=== PATIENT | female | born 1930 | race Caucasian/White ===

== ENCOUNTER 2016-11-15 17:52 | Emergency (ER) | payer MEDICARE, BC ==
[2016-11-15 18:51] VITALS: BP 95/66
--- NOTE | 2016-11-15 19:56 | UC ---
Complaint Female HPI - HPI Summary HPI Summary: Patient has had increased urinary frequency, some dysruia, denies fever - History Of Current Complaint Chief Complaint: UCGU Stated Complaint: URINARY Time Seen by Provider: 11/15/16 19:38 Hx Obtained From: Patient ?: No Onset/Duration: Sudden Onset, Lasting Days Timing: Constant Severity Initially: Moderate Severity Currently: Moderate Character: Burning Aggravating Factor(s): Urination Associated Signs And Symptoms: Positive: Negative - Allergies/Home Medications Allergies/Adverse Reactions: Allergies Allergy/AdvReac Type Severity Reaction Status Date / Time No Known Allergies Allergy Verified 11/15/16 18:44 Home Medications: Home Medications Albuterol HFA INHALER* [Ventolin HFA Inhaler*] 2 puff INH Q4H PRN 11/15/16 [ History Confirmed 11/15/16] Amitriptyline TAB* [Elavil TAB*] 10 mg PO BEDTIME 11/15/16 [History Confirmed ] Atenolol & Chlorthalidone [Atenolol/Chlorthalidone 100-25 mg-] 1 tab PO DAILY [History Confirmed 11/15/16] Calcium Polycarbophil TAB* [Fibercon TAB*] 625 mg PO DAILY 11/15/16 [History Confirmed 11/15/16] Cholecalciferol [Vitamin D-3] 400 unit PO DAILY 11/15/16 [History Confirmed ] Furosemide TAB* [Lasix TAB*] 20 mg PO DAILY 11/15/16 [History Confirmed 11/15/16 ] Glimepiride [Amaryl] 1 mg PO DAILY 11/15/16 [History Confirmed 11/15/16] Metoprolol Succinate XL TAB* [Toprol XL TAB*] 75 mg PO DAILY 11/15/16 [History Confirmed 11/15/16] Pantoprazole TAB (NF) [Protonix TAB (NF)] 40 mg PO DAILY 11/15/16 [History Confirmed 11/15/16] Potassium Chlor TAB* [Klor Con ER TAB 10 MEQ*] 10 meq PO TID 11/15/16 [History Confirmed 11/15/16] Pravastatin (NF) [Pravachol (NF)] 10 mg PO 1700 11/15/16 [History Confirmed ] Sitagliptin (NF) [Januvia (NF)] 50 mg PO DAILY 11/15/16 [History Confirmed 11/15] Vitamin B Complex TAB* [Complex B-100*] 1 tab PO DAILY 11/15/16 [History Confirmed 11/15/16] Warfarin TAB(*) [Coumadin TAB(*)] 2 mg PO DAILY 11/15/16 [History Confirmed ] PMH/Surg Hx/FS Hx/Imm Hx Previously Healthy: Yes Endocrine History Of: Reports: Diabetes Cardiovascular History Of: Reports: Hypertension - Surgical History Surgical History: Yes Surgery Procedure, Year, and Place: lumpectomy - Family History Known Family History: Negative: Cardiac Disease, Hypertension - Social History Alcohol Use: None Substance Use Type: None Smoking Status (MU): Former Smoker When Did the Patient Quit Smoking/Using Tobacco: 30 years ago Review of Systems Constitutional: Negative Skin: Negative Eyes: Negative ENT: Negative Respiratory: Negative Cardiovascular: Negative Gastrointestinal: Negative Genitourinary: Dysuria, Frequency Motor: Negative Neurovascular: Negative Musculoskeletal: Negative Neurological: Negative Psychological: Negative All Other Systems Reviewed And Are Negative: Yes Physical Exam Triage Information Reviewed: Yes Appearance: Well-Nourished, Ill-Appearing, Pain Distress Vital Signs: Initial Vital Signs Temp 97.6 F 11/15/16 18:45 Pulse 88 11/15/16 18:45 Resp 20 11/15/16 18:45 BP 95/66 11/15/16 18:45 Pulse Ox 100 11/15/16 18:45 Vital Signs Reviewed: Yes Eye Exam: Normal Eyes: Positive: Conjunctiva Clear ENT Exam: Normal ENT: Positive: Normal ENT inspection, Hearing grossly normal, Pharynx normal, TMs normal Dental Exam: Normal Neck exam: Normal Neck: Positive: Supple, Nontender, No Lymphadenopathy Respiratory Exam: Normal Respiratory: Positive: Chest non-tender, Lungs clear, Normal breath sounds Cardiovascular Exam: Normal Cardiovascular: Positive: RRR, No Murmur, Pulses Normal Abdominal Exam: Normal Abdomen Description: Positive: Nontender, No Organomegaly, Soft - neg CVA tenderness Bowel Sounds: Positive: Present Musculoskeletal Exam: Normal Musculoskeletal: Positive: Strength Intact, ROM Intact, No Edema Neurological Exam: Normal Neurological: Positive: Alert, Muscle Tone Normal Psychological Exam: Normal Skin Exam: Normal Complaint Female Dx - Course Course Of Treatment: hx obtained, exam performed, meds reviewed, UA positive, treated with ABX - Differential Dx/Diagnosis Differential Diagnosis/HQI/PQRI: Sexually Transmitted Disease, Ureteral Stone, Urinary Tract Infection Provider Diagnoses: UTI Discharge - Discharge Plan Condition: Stable Disposition: HOME Prescriptions: Cephalexin CAP* [Keflex CAP*] 500 mg PO BID #20 cap Patient Education Materials: Urinary Tract Infection in Women (ED) Referrals: Marcio Chan MD [Medical Doctor] - Additional Instructions: 1. Take the medication as prescribed. 2. Notify the provider that monitors your coumadin that you are on an antibiotic to see if they want more frequent monitoring during use. 3.Start with the high dose cranberry pill daily, Lolita Walker makes a 25,500 unit pill.
== END 2016-11-15 20:03 | disposition home or self-care (01) ==
LOC: UCCORT 17:52
DX: N39.0 Urinary tract infection, site not specified (principal); I10 Essential (primary) hypertension; Z87.891 Personal history of nicotine dependence
CPT/HCPCS: 81003; 87077; 87086; 99202; G0463